=== PATIENT | female | born 1990 | race Caucasian/White ===

== ENCOUNTER 2024-10-22 12:27 | Outpatient (CLI) | payer OTHER, SELFPAY ==
--- NOTE | ~2024-10-22 | MMUS_ITS ---
EXAMINATION: MM diagnostic ziggy BI w elizabeth, US breast BI limited HISTORY: Bilateral breast lumps TECHNIQUE: 3-D tomosynthesis images of the breasts were performed and synthetic 2-D images were gener ated. CAD analysis was submitted and interpreted. High resolution limited bilateral breast ultrasound was performed. COMPARISON: None BREAST PARENCHYMAL COMPOSITION:Not Dense. The breasts are almost entirely fatty FINDINGS: MAMMOGRAPHIC FINDINGS: Mammographic pattern of the breast is unremarkable. Small lymph node present at the upper, outer left breast. No suspicious mass or distortion seen in either breast. No suspicious parenchymal calcificat ions. ULTRASOUND: Sonographic imaging performed of the areas of palpable concern in the bilateral breasts. No solid or cystic lesion identified in the regions scanned. IMPRESSION: No evidence for malignancy. No mammographic or sonographic correlate seen in the areas of clinical c oncern in both breasts. BI-RADS Category 1: Negative Reviewed, dictated and finalized at location . IMPRESSION: No evidence for malignancy. No mammographic or sonographic correlate seen in t he areas of clinical concern in both breasts. BI-RADS Category 1: Negative
--- OUTSIDE RECORDS SUMMARY | 2024-10-22 13:31 | XMS_ITS | Referral Summary ---
Author Organization [facility] Address [facility] [place] [address] Care Team Providers Care Dryer Operator Name Role Phone Elizabeth Jean MD Primary Care Provid er Encounters Date Type Department Care Team Description 09/06/2024 10:00 AM INVOICE CLASSIFICATION CLERK Office Visit [facility] Orthopedics and Sports Medicine [address] [facility] [address] [place] [phone] Kamila Garzon DO Sprain of anterior cruciate ligament of right knee, subsequent encounter (Primary Dx) 08/28/2024 5:56 AM INVOICE CLASSIFICATION CLERK - 08/28/2024 11:59 PM INVOICE CLASSIFICATION CLERK Hospital Encounter [facility] MRI [address] [place] [address] Tear of medial meniscus of right knee, current, unspecified tear type, initial encounter; Tear of lateral meniscus of right knee, current, unspecified tear type, initial encounter Discharge Disposition: Discharge to home or self care 07/24/2024 2:30 PM INVOICE CLASSIFICATION CLERK Office Visit [facility] Orthopedics and Sports Medicine [facility] [address] [place] [phone] Kamila Garzon DO Tear of medial meniscus of right knee, current, unspecified tear type, initial encounter (Primary Dx); Tear of lateral meniscus of right knee, current, unspecified tear type, initial encounter from Last 3 Months Allergies No known active allergies Medications buPROPion XL (WELLBUTRIN XL) 300 mg 24 hr tablet Take 1 tablet (300 mg total) by mouth daily 4 Active dextroamphetami ne-amphetamine XR (ADDERALL XR) 15 mg 24 hr capsule Take 1 capsule (15 mg total) by mouth nurse's assistant before breakfast 4 Active levonorgestreL (MIRENA) IUD by intrauterine route as directed Active mirtazapine (REMERON) 7.5 mg tablet TAKE 1 TABLET (7.5MG) BY MOUTH ONCE AT BEDTIME (FOR DEPRESSION, ANXIETY) 4 Active propranoloL (INDERAL) 10 mg tablet take 1 tablet by mouth up to twice a day if needed for anxiety 4 Active sertraline (ZOLOFT) 100 mg tablet TAKE 2 TABLETS (200MG) BY MOUTH ONCE DAILY (FOR DEPRESSION, ANXIETY) 4 Active Active Problems Problem Noted Date Diagnosed Date Moderate episode of recurrent major depressive d isorder 11/09/2023 Attention deficit hyperactiv ity disorder (ADHD), predominantly inattentive type 10/25/2023 EARNEST (generalized anxiety disorder) 10/25/2023 Hypothyroidism 10/25/2023 Recurrent major depressive disorder, in partial remission 10/25/2023 Social History Tobacco Use Types Packs/Day Years Used Date Smoking Tobacco: Never Tobacco Cessation:Counseling Given: Not Answered AUDIT-C Answer Date Recorded Q1: How often do you have a drink containing alc ohol? Never 07/24/2024 Average Number of Drinks Not on file 024 Frequency of Binge Drinking Not on file 06/26 Comments Unknown Sex and Gender Information Value Date Recorded Sex Assigned at Not on file Legal Sex Female 2:22 PM INVOICE CLASSIFICATION CLERK Gender Identity Not on file Sexual Orientation Not on file Last Filed Vital Signs Vital Sign Reading Time Taken Comments Blood Pressure - - Pulse - - Temperature - - Respiratory Rate - - Oxygen Saturation - - Inhaled Oxygen Concentration - - Weight 111.1 kg (245 lb) 07/24/2024 2:32 PM INVOICE CLASSIFICATION CLERK Height 165.1 cm (5' 5 ) 07/24/2024 2:32 PM INVOICE CLASSIFICATION CLERK Body Mass Index 40.77 07/24/2024 2:32 PM INVOICE CLASSIFICATION CLERK Plan of Treatment Not on file Procedures Procedure Name Priority Date/Time Associated Diagnosis Comments MRI KNEE RIGHT WO CONTRAST Schedule Routine, Read Routine (OP Routine) 08/28/2024 6:50 AM INVOICE CLASSIFICATION CLERK Tear of medial meniscus of right knee, current, unspecified tear type, initial encounter Tear of lateral meniscus of right knee, current, unspecified tear type, initial encounter from Last 3 Months Results * MRI Knee Right WO Contrast (08/28/2024 6:50 AM INVOICE CLASSIFICATION CLERK) Anatomical Region Laterality Modality Lower Extremities Right Magnetic Reson ance 08/28/2024 1:37 PM INVOICE CLASSIFICATION CLERK Narrative 08/28/2024 2:02 PM INVOICE CLASSIFICATION CLERK EXAM DESCRIPTION: MRI KNEE RIGHT WO CONTRAST REASON FOR STUDY: Meniscal tear, untreated, new symptoms Pt turned knee wrong in April, has had pain since, shoots up and down leg. No prior surg or inj TECHNIQUE: Multiplanar, multisequence MRI of the right knee was performed without contrast. COMPARISON: X-rays 05/30/2024 FINDINGS: Joint and Bursae: There is a large joint effusion. No evidence of a Crane's cyst. Bones: No acute fracture or suspicious marrow infiltration. Mild red marrow. No avascular necrosis. Cartilage: Patellofemoral: No significant chondrosis. Medial compartment: Mild chondrosis central weight-bearing medial femoral condyle. Lateral Compartment: No significant chondrosis. Ligaments: There is moderate heterogeneous signal seen along the anterior insertion of the ACL. The ACL demonstrates a normal orientation. These findings may reflect prior injury/partial tearing with scarring and/or fibrosis. See sagittal image 16 of 32 and adjacent slices. PCL is intact. Lateral ligamentous structures and the popliteus are intact. MCL is intact. Extensor Mechanism: The quadriceps and patellar tendons are intact. Tendons/Soft tissues: The popliteus tendon is intact. The musculature is intact without evidence of tear. The popliteal neurovascular bundle is normal. Medial Meniscus: The medial meniscus is intact. Lateral Meniscus: The lateral meniscus is intact. IMPRESSION: Mild chondrosis central weight-bearing medial femoral condyle. There is moderate heterogeneous signal seen along the anterior insertion of the ACL. The ACL demonstrates a normal orientation. These findings may reflect prior injury/partial tearing with scarring and/or fibrosis. Large joint effusion. ACL, PCL and menisci are intact. THIS IS AN ELECTRONICALLY VERIFIED FINAL REPORT 08/28/2024 2:02 PM - Electronically signed by Dereje Saldañain M.D. MJ T: Report ID: [id number] Reading Location: [id number] Procedure Note Dereje Alcaraz MD - 08/28/2024 EXAM DESCRIPTION: MRI KNEE RIGHT WO CONTRAST REASON FOR STUDY: Meniscal tear, untreated, new symptoms Pt turned knee wrong in April, has had pain since, shoots up and downleg. No prior surg or inj TECHNIQUE: Multiplanar, multisequence MRI of the right knee wasperformed without contrast. COMPARISON: X-rays 05/30/2024 FINDINGS: Joint and Bursae: There is a large joint effusion. No evidence of a Crane's cyst. Bones: No acute fracture or suspicious marrow infiltration. Mild red marrow. No avascular necrosis. Cartilage: Patellofemoral: No significant chondrosis. Medial compartment: Mild chondrosis central weight-bearingmedial femoral condyle. Lateral Compartment: No significant chondrosis. Ligaments: There is moderate heterogeneous signal seen along the anterior insertionof the ACL. The ACL demonstrates a normal orientation. These findings may reflect prior injury/partial tearing with scarring and/or fibrosis. See sagittal image 16 of 32 and adjacent slices. PCL is intact. Lateral ligamentous structures and the popliteus are intact. MCL is intact. Extensor Mechanism: The quadriceps and patellar tendons are intact. Tendons/Soft tissues: The popliteus tendon is intact. The musculature is intact without evidence of tear. The popliteal neurovascular bundle isnormal. Medial Meniscus: The medial meniscus is intact. Lateral Meniscus: The lateral meniscus is intact. IMPRESSION: Mild chondrosis central weight-bearing medial femoral condyle. There is moderate heterogeneous signal seen along the anterior insertionof the ACL. The ACL demonstrates a normal orientation. These findings mayreflect prior injury/partial tearing with scarring and/or fibrosis. Large joint effusion. ACL, PCL and menisci are intact. THIS IS AN ELECTRONICALLY VERIFIED FINAL REPORT 08/28/2024 2:02 PM - Electronically signed by Dereje BURKS T: Report ID: [id number] Reading Location: [place] [address] Kamila Stillse IMG MRI PROCEDURES Final Resul t from Last 3 Months Insurance [employer] OPEN ACCESS Care Teams Dryer Operator Relationship Specialty Start Date End Date Elizabeth Jean MD [address] [place] [id number] PCP - General Internal Medicine 07/02/24
--- OUTSIDE RECORDS SUMMARY | 2024-10-22 13:31 | XMS_ITS | Clinical Summary ---
Author Organization [facility] Address [address] [place] [address] Care Team Providers Care Riprap Man Name Role Phone Elizabeth Jean MD Primary Care Provid er Allergies No known active allergies Medications buPROPion XL (WELLBUTRIN XL) 300 mg 24 hr tablet Take 1 tablet (300 mg total) by mouth daily 4 Active dextroamphetami ne-amphetamine XR (ADDERALL XR) 15 mg 24 hr capsule Take 1 capsule (15 mg total) by mouth digital content producer before breakfast 4 Active levonorgestreL (MIRENA) IUD [...] major depressive disorder, in partial remission 10/25/2023 Encounters Date Type Department Care Team Description 09/06/2024 10:00 AM SUPERVISOR MIRROR FABRICATION Office Visit [facility] Orthopedics and Sports Medicine [address] [facility] [address] [place] [address] Kamila Garzon, Sprain of anterior cruciate ligament of right knee, subsequent encounter (Primary Dx) 08/28/2024 5:56 AM SUPERVISOR MIRROR FABRICATION - 08/28/2024 11:59 PM SUPERVISOR MIRROR FABRICATION Hospital Encounter [facility] MRI [address] [place] [address] Tear of medial meniscus of right knee, current, unspecified tear type, initial encounter; Tear of lateral meniscus of right knee, current, unspecified tear type, initial encounter Discharge Disposition: Discharge to home or self care 07/24/2024 2:30 PM SUPERVISOR MIRROR FABRICATION Office Visit [facility] Orthopedics and Sports Medicine [address] [facility] [address] [place] [address] Kamila Garzon DO Tear of medial meniscus of right knee, current, unspecified tear type, initial encounter (Primary Dx); Tear of lateral meniscus of right knee, current, unspecified tear type, initial encounter from Last 3 Months Social History Tobacco Use Types Packs/Day Years [...] on file Legal Sex Female 2:22 PM SUPERVISOR MIRROR FABRICATION Gender Identity Not on file Sexual Orientation Not on file Obstetrics History Last Filed Vital Signs Vital Sign Reading Time Taken Comments Blood Pressure - - Pulse - - Temperature - - Respiratory Rate - - Oxygen Saturation - - Inhaled Oxygen Concentration - - Weight 111.1 kg (245 lb) 07/24/2024 2:32 PM SUPERVISOR MIRROR FABRICATION Height 165.1 cm (5' 5 ) 07/24/2024 2:32 PM SUPERVISOR MIRROR FABRICATION Body Mass Index 40.77 07/24/2024 2:32 PM SUPERVISOR MIRROR FABRICATION Plan of Treatment Health Maintenance Due Date Last Done Comments Cervical Cancer Screening 1990 Depression Screening 1990 Hepatitis C Screening 1990 DTaP/Tdap/Td Vaccine (1 - Tdap) 2001 Varicella Vaccines (1 of 2 - 13+ 2-dose series) 2003 Hepatitis B Screening 2008 Regular Well Visit/Exam 18-64 2008 Influenza Vaccine (#1) 2024 HPV Vaccines Aged Out No longer eligi ble based on patient's age to complete this topic Pneumococcal vaccine <65 Aged Out No longer eligible based on patient's age to complete this topic Procedures Procedure Name Priority Date/Time Associated Diagnosis Comments MRI KNEE RIGHT WO CONTRAST Schedule Routine, Read Routine (OP Routine) 08/28/2024 6:50 AM SUPERVISOR MIRROR FABRICATION Tear of medial meniscus of right knee, current, unspecified tear type, initial encounter Tear of lateral meniscus of right knee, current, unspecified tear type, initial encounter from Last 3 Months Results * MRI Knee Right WO Contrast (08/28/2024 6:50 AM SUPERVISOR MIRROR FABRICATION) Anatomical Region Laterality Modality Lower Extremities Right Magnetic Reson ance 08/28/2024 1:37 PM SUPERVISOR MIRROR FABRICATION Narrative 08/28/2024 2:02 PM SUPERVISOR MIRROR FABRICATION EXAM DESCRIPTION: MRI KNEE RIGHT WO CONTRAST [...] 2:02 PM - Electronically signed by Dereje Alcaraz M.D. MJ T: Report ID: [id number] Reading Location: [id number] Procedure Note Dereje Alcaraz MD - 08/28/2024 [...] 2:02 PM - Electronically signed by Dereje Alcaarz M.D. MJ T: Report ID: [id number] Reading Location: [id number] Kamila Garzon DO IMG MRI PROCEDURES Final Resul t from Last 3 Months Insurance [employer] OPEN ACCESS Care Teams Riprap Man Relationship Specialty Start Date End Date Elizabeth Jean MD [address] [place] [id number] PCP - General Internal Medicine 07/02/24
--- OUTSIDE RECORDS SUMMARY | 2024-10-22 13:31 | XMS_ITS | Clinical Summary ---
Author Organization [facility] Address [address] [place] [address] Care Team Providers Care Marble Machine Operator Name Role Phone Elizabeth Jean MD Primary Care Provider Source Comments [facility],non-owned Affiliates and Associated Physician Practices is amultiple site organization consisting of ambulatory clinics and hospital sitesin [place], [place], [place] and [place]. This disclosure is being madepursuant to the Care Everywhere program and may not contain all information available regarding this patient. Last updated 18.[facility] Allergies No known active allergies Medications * Be aware that medications may not be up to date on this document. Alwaysverify current medications with the patient. Medication Sig Dispensed Refills Start Date End Date Status propranolol (Inderal) 10 MG tablet take 1 tablet by mouth up to twice a day if needed for anxiety 09/19/2023 Active levonorgestrel (Mirena) 20 MCG/DAY IUD by Intrauterine route as directed Active mirtazapine (Remeron) 7.5 MG tablet TAKE 1 TABLET (7.5MG) BY MOUTH ONCE AT BEDTIME (FOR DEPRESSION, ANXIETY) 90 tablet 1 02/08/2024 Active amphetamine-dextroa mphetamine XR 24hr (Adderall XR) 15 MG capsuleIndications: Attention deficit hyperactivity disorder (ADHD), predominantly inattentive type Take 1 (one) capsule by mouth every morning 30 capsule 05/30/2024 Active buPROPion XL 24hr (Wellbutrin-XL) 300 MG tablet TAKE 1 TABLET BY MOUTH EVERY DAY 90 tablet 1 08/15/2024 Active sertraline (Zoloft) 100 MG tablet TAKE 2 TABLETS (200MG) BY MOUTH ONCE DAILY (FOR DEPRESSION, ANXIETY) 180 tablet 1 08/15/2024 Active Active Problems Problem Noted Date Diagnosed Date Moderate episode of recurrent major depressive d isorder 11/09/2023 Hypothyroidism 10/25/2023 EARNEST (generalized anxiety disorder) 10/25/2023 Attention deficit hyperactiv ity disorder (ADHD), predominantly inattentive type 10/25/2023 Recurrent major depressive disorder, in partial remission 10/25/2023 Class 3 severe obesity due t o excess calories with body mass index (BMI) of 40.0 to 44.9 in adult 10/25/2023 Encounters Date Type Department Care Team Description 08/15/2024 Refill [facility] - Family Medicine [address] [facility] [place] [address] Elizabeth Jean MD Refill Request from Last 3 Months Family History Medical History Relation Name Comments ADD/ADHD Brother Depression Mother Anxiety Disorder Sister Other Sister mytro valve pro lapse Relation Name Status Comments Brother Alive Father Alive Mother Alive Sister Alive Social History Tobacco Use Types Packs/Day Years Used Date Smoking Tobacco: Never Passive Smoke Exposure: Never Smokeless Tobacco: Never Tobacco Cessation:Counseling Given: No Alcohol Use Standard Drinks/Week Comments Yes 0 (1 standard drink = 0.6 oz pur e alcohol) occasional, once a month PHQ-2 Answer Date Recorded Patient Health Questionnaire-2 Score 0 05/30/2024 Sex and Gender Information Value Date Recorded Sex Assigned at Not on file Gender Identity Not on file Sexual Orientation Not on file Last Filed Vital Signs Vital Sign Reading Time Taken Comments Blood Pressure 128/84 05/30/2024 8:53 AM PRISM INSPECTOR Pulse 72 05/30/2024 8:53 AM PRISM INSPECTOR Temperature 36.6 C (97.8 F) 05/30/2024 8:53 AM PRISM INSPECTOR Respiratory Rate 18 02/08/2024 8:07 AM CDT Oxygen Saturation 100% 05/30/2024 8:53 AM PRISM INSPECTOR Inhaled Oxygen Concentration - - Weight 117.9 kg (260 lb) 05/30/2024 8:53 AM PRISM INSPECTOR Height 165.1 cm (5' 5 ) 05/30/2024 8:53 AM PRISM INSPECTOR Body Mass Index 43.27 05/30/2024 8:53 AM PRISM INSPECTOR Plan of Treatment Health Maintenance Due Date Last Done Comments PAP SMEAR 1990 DTAP/TDAP/TD VACCINES (1 - Tdap) 2009 HEPATITIS B VACCINE (1 of 3 - 19+ 3-dose series) 2009 DEPRESSION SCREENING 07/25/2024 10/25/2023 INFLUENZA VACCINE (#1) 2025 Postp oned from 03/25/2024 (Patient Directed) COVID-19 VACCINE (1 - 2023-2 5 season) 2025 Postponed from 03/25 (Patient Directed) ZOSTER VACCINE (1 of 2) 2040 HEPATITIS C SCREENING Completed 10/25/2023 HIV SCREENING Completed 10/25/2023 HIB VACCINE Aged Out No longer eligi ble based on patient's age to complete this topic HPV VACCINE Aged Out No longer eligi ble based on patient's age to complete this topic MENINGOCOCCAL (Group B) VACC INE SHARED DECISION-MAKING Aged Out No longer eligibl e based on patient's age to complete this topic MENINGOCOCCAL GROUPS A/C/Y/W VACCINE Aged Out No longer eligible b ased on patient's age to complete this topic PNEUMOCOCCAL VACCINE Aged Out No long er eligible based on patient's age to complete this topic Procedures Procedure Name Priority Date/Time Associated Diagnosis Comments HEPATITIS C ANTIBODY Routine 10/25/2023 10:12 AM CDT Routine general medical examination at a health care facility HIV-1 HIV-2 ANTIBODY + HIV P24 AG PANEL Routine 10/25/2023 10:12 AM CDT Routine general medical examination at a health care facility from Last 3 Months or Most Recently Relevant to Health Maintenance Results * HIV-1 HIV-2 ANTIBODY + HIV P24 AG PANEL (10/25/2023 10:12 AM CDT) HIV Screen 4th Generation w Reflex Non Reactive Non Reactive [facility] INSURANCE BILL Comment: HIV Negative HIV-1/HIV-2 antibodies and HIV-1 p24 antigen were NOT detected. There is no laboratory evidence of HIV infection. FASTING Blood BLOOD SPECIMEN / Unknown 10/25/2023 10:12 AM CDT 10/25/2023 Narrative Resulting Agency Comment Lab Testing performed at: [facility] [address] [facility] [phone] Elizabeth Jean MD LAB - CHEMISTRY ORDERABLES Performing Organization Address City/[facility]/ZIP Co de Phone Number [facility] INSURANCE BILL [address] [place] [address] * HEPATITIS C ANTIBODY (10/25/2023 10:12 AM CDT) Hepatitis C Antibody Non Reactive Non Reactive [facility] INSURANCE BILL Comment: HCV antibody alone does not differentiate between previously resolved infection and active infection. Equivocal and Reactive HCV antibody results should be followed up with an HCV RNA test to support the diagnosis of active HCV infection. FASTING Blood BLOOD SPECIMEN / Unknown 10/25/2023 10:12 AM CDT 10/25/2023 Narrative Resulting Agency Comment Lab Testing performed at: [facility] (acquired by [employer] in 2014[facility] [address] [facility] [id number] Elizabeth Jean MD LAB - CHEMISTRY ORDERABLES Performing Organization Address City/[facility] Co de Phone Number [facility] INSURANCE BILL [address] [place] [address] from Last 3 Months or Most Recently Relevant to Health Maintenance Care Teams Marble Machine Operator Relationship Specialty Start Date End Date Elizabeth Jean MD [address] [place] [address] PCP - General Internal Medicine 10/25/23
--- OUTSIDE RECORDS SUMMARY | 2024-10-22 13:31 | XMS_ITS | Clinical Summary ---
Author Organization [facility] Address [facility] [place] [address] Care Team Providers Care Academic Affairs Vice President Name Role Phone Elizabeth Jean MD Primary Care Provide r Social History Tobacco Use Types Packs/Day Years Used Date Smoking Tobacco: Never Assessed Comments Unknown Sex and Gender Information Value Date Recorded Sex Assigned at Not on file Legal Sex Female 9:52 AM POT RELINER Gender Identity Not on file Sexual Orientation Not on file Plan of Treatment Health Maintenance Due Date Last Done Comments Cervical Cancer Screening Pa p Smear (Age 30 to 64) Every 3 Years 1990 Annual Physical 1993 DTaP, Tdap and Td Vaccines ( 1 - Tdap) 2009 Hepatitis B Vaccines (1 of 3 - 19+ 3-dose series) 2009 Cervical Cancer Screening Pa p with HPV Testing (Age 30 to 64) Every 5 Years 2020 Cervical Cancer Screening with HPV 2020 COVID-19 Vaccine ( - 2023-2 5 season) 2024 PHQ-2 (Physician [place]) 07/25/2024 Hepatitis C Completed 10/25/2023 HPV Vaccines Aged Out No longer eligi ble based on patient's age to complete this topic Meningococcal B Vaccine Aged Out No l onger eligible based on patient's age to complete this topic Meningococcal Vaccine Aged Out No juan josé erma eligible based on patient's age to complete this topic Pneumococcal Vaccine: Pediat rics (0 to 5 Years) and At-Risk Patients (6 to 64 Years) Aged Out No longer eligi ble based on patient's age to complete this topic RSV Immunizations Under 20 Months Aged Out No longer eligible based on patient's age to complete this topic Insurance [facility] Care Teams Academic Affairs Vice President Relationship Specialty Start Date End Date Elizabeth Jean MD [address] [address] PCP - General INTERNAL MEDICINE 05/30/24
== END 2024-10-22 12:28 | disposition home or self-care (01) ==
LOC: ANHIMG 12:28
PROVIDERS: PCP Obstetrics & Gynecology; Visit Provider Obstetrics & Gynecology
DX: N63.10 Unspecified lump in the right breast, unspecified quadrant (principal); N63.20 Unspecified lump in the left breast, unspecified quadrant
CPT/HCPCS: 76642; 77062; 77066; G0279